=== PATIENT | male | born 1995 | race Two or more races ===

== ENCOUNTER 2017-07-28 13:43 | Emergency (ER) | payer MEDICAID, OTHER ==
[~2017-07-28] VITALS: Ht 182.9 cm; Wt 80.5 kg
[2017-07-28 13:47] VITALS: BP 113/73
[2017-07-28] MEDS ORDERED: KETOROLAC 30 MG/1 ML ONE (14:16)
[2017-07-28] MEDS ORDERED: IBUPROFEN 200 MG TABLET ONE (14:21)
[2017-07-28] MEDS ORDERED: IBUPROFEN 200 MG TABLET PO ONE (14:30)
[2017-07-28] MEDS ORDERED: KETOROLAC 30 MG/1 ML IM ONE (14:30)
== END 2017-07-28 15:15 | disposition home or self-care (01) ==
LOC: ED 15:09
DX: S06.0X0A Concussion without loss of consciousness, initial encounter (principal); S09.90XA Unspecified injury of head, initial encounter; V49.9XXA Car occupant (driver) (passenger) injured in unspecified traffic accident, initial encounter; Y93.89 Activity, other specified; Y92.89 Other specified places as the place of occurrence of the external cause; Y99.8 Other external cause status
CPT/HCPCS: 70450; 99284